=== PATIENT | female | born 1950 | race Caucasian/White ===

== ENCOUNTER → 2016-11-25 | Outpatient (CLI) | payer MEDICARE, OTHER ==
[~2016-11-25] MED LIST: ACET1TAB52 PO; ATOR20TA9 PO; GABA300C10 PO; LORA1TAB46 PO; TRAZ150T68 PO
[2016-11-25 10:48] LABS: BLOOD UREA NITROGEN 14 mg/dL (7-18)
== END | disposition home or self-care (01) ==
LOC: STAR 09:44
PROVIDERS: ATTEND Orthopaedic Surgery Orthopaedic Surgery of the Spine
DX: Z01.818 Encounter for other preprocedural examination (principal); M43.16 Spondylolisthesis, lumbar region; M48.06 Spinal stenosis, lumbar region; Z79.899 Other long term (current) drug therapy
CPT/HCPCS: 36415; 71020; 80048; 81003; 85025; 93005

== ENCOUNTER 2016-12-09 05:30 | Observation (INO) | payer MEDICARE, OTHER ==
[~2016-12-09] VITALS: Ht 157.5 cm; Wt 79.1 kg
[~2016-12-09 05:30] MED LIST changes: +TRAZ150T62 PO; -TRAZ150T68 PO
[2016-12-09 06:02] VITALS: BP 124/69
[2016-12-09] MEDS: LACTATED RINGERS 1,000 ML IV SCH ×2 (06:19→14:08)
[2016-12-09] MEDS ORDERED: TRANEXAMIC ACID 100 MG/ML, 10ML ONE (06:42)
[2016-12-09] MEDS ORDERED: VANCOMYCIN 1,000 MG ONE (06:42)
[2016-12-09] MEDS ORDERED: THROMBIN 5,000 UNIT VIAL TP ONE (06:43)
[2016-12-09] MEDS ORDERED: LIDOCAINE/MPF 2%-EPI 1:200K, 20 ML ONE (06:43)
[2016-12-09] MEDS ORDERED: FENTANYL PF 100 MCG/2ML ONE ×3 (06:45→10:48)
[2016-12-09] MEDS ORDERED: REMIFENTANIL 2 MG ONE (06:46)
[2016-12-09] MEDS ORDERED: MIDAZOLAM 1 MG/ML, 2ML ONE (06:46)
[2016-12-09] MEDS ORDERED: ATENOLOL 25 MG TABLET ONE (07:00)
[2016-12-09] MEDS ORDERED: ONDANSETRON 2MG/ML, 2ML ONE (07:00)
[2016-12-09] MEDS ORDERED: PROPOFOL 10 MG/ML, 50ML ONE (07:00)
[2016-12-09] MEDS ORDERED: DEXAMETHASONE 4 MG/ML, 5ML ONE (07:00)
[2016-12-09] MEDS ORDERED: LIDOCAINE 2%-EPI 1:100K, 20ML INFIL ONE (07:57)
[2016-12-09] MEDS ORDERED: BUPIVACAINE LIPOSOME/PF INFIL ONE (10:00)
[2016-12-09] MEDS ORDERED: ACETAMINOPHEN 650 MG/20.3 ML UDC ONE (10:48)
[2016-12-09] MEDS ORDERED: OXYcodone 5 MG/5 ML ORAL.SOL UDC ONE ×2 (10:48→11:37)
[2016-12-09] MEDS: FENTANYL PF 100 MCG/2ML IV PRN ×2 (10:50→10:58)
[2016-12-09] MEDS ORDERED: PROMETHAZINE 25 MG/ML, 1ML IV PRN (11:00)
[2016-12-09] MEDS ORDERED: ACETAMINOPHEN 325 MG TABLET PO PRN (11:00)
[2016-12-09] MEDS ORDERED: ALBUTEROL/IPRATROPIUM 2.5MG/0.5MG, 3 ML NPPB PRN (11:00)
[2016-12-09] MEDS ORDERED: MEPERIDINE/PF 25MG/0.5ML IVPush PRN (11:00)
[2016-12-09] MEDS ORDERED: METOPROLOL 1 MG/ML, 5ML IV PRN (11:00)
[2016-12-09] MEDS ORDERED: LORATADINE/PSE 5/120MG TAB.ER.12H PO PRN (11:00)
[2016-12-09] MEDS ORDERED: EPHEDRINE 50 MG/ML, 1ML IVPush PRN (11:00)
[2016-12-09] MEDS ORDERED: hydrALAzine 20 MG/ML, 1ML IV PRN (11:00)
[2016-12-09] MEDS ORDERED: MIDAZOLAM 1 MG/ML, 2ML IV PRN (11:00)
[2016-12-09] MEDS ORDERED: GABAPENTIN 300 MG CAPSULE PO PRN (11:00)
[2016-12-09] MEDS ORDERED: ALBUTEROL SULFATE 2.5 MG/3 ML NPPB PRN (11:00)
[2016-12-09] MEDS ORDERED: CEFAZOLIN 1,000 MG IM SCH (11:00)
[2016-12-09] MEDS ORDERED: HYDROcodone/APAP 7.5-325MG/15ML UDC PO PRN (11:00)
[2016-12-09] MEDS ORDERED: ONDANSETRON 2MG/ML, 2ML IVPush PRN ×2 (11:00)
[2016-12-09] MEDS ORDERED: DIPHENHYDRAMINE 50 MG/ML, 1ML IVPush PRN (11:00)
[2016-12-09] MEDS ORDERED: LABETALOL 5MG/ML, 20ML IV PRN (11:00)
[2016-12-09] MEDS: OXYcodone 5 MG/5 ML ORAL.SOL UDC PO PRN ×2 (11:05→11:38)
[2016-12-09] MEDS ORDERED: HYDROmorphone 2 MG/ML, 1ML ONE (11:06)
[2016-12-09] MEDS: HYDROmorphone 1 MG/ML, 1ML IV PRN ×7 (11:08→18:56)
[2016-12-09] MEDS: DIAZEPAM 5 MG/ML, 10ML VIAL IV PRN ×2 (11:51→12:20)
[2016-12-09 12:41] VITALS: BP 123/74
[2016-12-09 13:47] VITALS: BP 122/74
[2016-12-09] MEDS: CEFAZOLIN PMX 1GM/50ML 50 ML IV SCH ×2 (15:02→23:15)
[2016-12-09 19:16] VITALS: BP 131/73
[2016-12-09] MEDS ORDERED: HYDROcodone/APAP 10/325 MG TABLET PO PRN (20:00)
[2016-12-09] MEDS: OXYcodone/APAP 10/325MG TABLET PO PRN (20:06)
[2016-12-09] MEDS ORDERED: TRAZODONE 150MG TABLET PO SCH (21:00)
[2016-12-10 00:04] VITALS: BP 115/70
[2016-12-10] MEDS: OXYcodone/APAP 10/325MG TABLET PO PRN ×3 (00:14→08:22)
[2016-12-10] MEDS: HYDROmorphone 1 MG/ML, 1ML IV PRN (02:27)
[2016-12-10] MEDS: CYCLOBENZAPRINE 10 MG TABLET PO PRN ×2 (03:05→11:07)
[2016-12-10 04:00] VITALS: BP 122/70
[2016-12-10] MEDS: CEFAZOLIN PMX 1GM/50ML 50 ML IV SCH (06:28)
[2016-12-10 08:23] VITALS: BP 108/65
[2016-12-10] MEDS ORDERED: CYCL-259 PO (12:06)
== END 2016-12-10 12:30 | disposition home or self-care (01) ==
LOC: ORIP 05:30 → INTOOBSV 05:30 → 4NOR 12:30
PROVIDERS: ADMIT Orthopaedic Surgery Orthopaedic Surgery of the Spine; ATTEND Orthopaedic Surgery Orthopaedic Surgery of the Spine
DX: M51.36 Other intervertebral disc degeneration, lumbar region (principal); M43.16 Spondylolisthesis, lumbar region; M48.06 Spinal stenosis, lumbar region; M84.48XA Pathological fracture, other site, initial encounter for fracture
CPT/HCPCS: 20931; 20936; 22630; 22840; 63030; 72100; 96365; 96375; 96376; 97162; C1713; C1762; C1767; C9290; G0378; G8978; J0690; J1100; J1170; J2250; J2405; J2704; J3010; J3370; J3490; J7120